=== PATIENT | male | born 1950 | race Caucasian/White ===

== ENCOUNTER → 2018-06-10 | Outpatient (CLI) | payer MEDICARE, OTHER | END | disposition home or self-care (01) | LOC: CFH 11:13 | PROVIDERS: ATTEND Nurse Practitioner | DX: J18.1 Lobar pneumonia, unspecified organism (principal); R91.8 Other nonspecific abnormal finding of lung field | CPT/HCPCS: 71046 ==

== ENCOUNTER 2018-09-08 13:50 | Outpatient (CLI) | payer MEDICARE, OTHER | END 2018-09-08 23:59 | disposition home or self-care (01) | LOC: PETCFH 13:50 | PROVIDERS: ATTEND Radiology Diagnostic Radiology | DX: C85.90 Non-Hodgkin lymphoma, unspecified, unspecified site (principal); C43.8 Malignant melanoma of overlapping sites of skin; I25.10 Atherosclerotic heart disease of native coronary artery without angina pectoris; K57.30 Diverticulosis of large intestine without perforation or abscess without bleeding | CPT/HCPCS: 78816; A9552 ==

== ENCOUNTER → 2018-09-13 | Outpatient (CLI) | payer MEDICARE, OTHER ==
[~2018-09-13] MED LIST: ALLO300T PO; ALPR0.25 PO; AMLO10TA8 PO; ASPI-496 PO; ATOR20TA PO; BENA40TA3 PO; CHOL100012 PO; GADOBUTROL 10 MMOL/10 ML PFS ONE; LEVO25TA4 PO; MAGN250T8 PO; METO25TA35 PO
== END | disposition home or self-care (01) ==
LOC: CFH 14:27
PROVIDERS: ATTEND Internal Medicine Hematology & Oncology
DX: C85.91 Non-Hodgkin lymphoma, unspecified, lymph nodes of head, face, and neck (principal); G31.89 Other specified degenerative diseases of nervous system
CPT/HCPCS: 70543; 70553; A9585

== ENCOUNTER 2018-09-15 06:12 | Day surgery (SDC) | payer MEDICARE, OTHER ==
[~2018-09-15] VITALS: Ht 175.3 cm; Wt 92.5 kg
[2018-09-15 07:18] VITALS: BP 157/80
[2018-09-15] MEDS ORDERED: CHOL100012 PO (07:27)
[2018-09-15] MEDS ORDERED: BENA40TA3 PO (07:27)
[2018-09-15] MEDS ORDERED: MAGN250T8 PO (07:27)
[2018-09-15] MEDS ORDERED: ASPI-496 PO (07:27)
[2018-09-15] MEDS ORDERED: METO25TA35 PO (07:27)
[2018-09-15] MEDS ORDERED: ALPR0.25 PO (07:27)
[2018-09-15] MEDS ORDERED: LEVO25TA4 PO (07:27)
[2018-09-15] MEDS ORDERED: ALLO300T PO (07:27)
[2018-09-15] MEDS ORDERED: ATOR20TA PO (07:27)
[2018-09-15] MEDS ORDERED: AMLO10TA8 PO (07:27)
[2018-09-15] MEDS ORDERED: SODIUM CHLORIDE 0.9% 1,000 ML IV SCH (07:41)
[2018-09-15] MEDS ORDERED: LIDOCAINE-MPF 1%, 5ML ONE (07:54)
[2018-09-15 07:55] LABS: BASOPHILS # (AUTO) 0.01 x10^3/uL (0-0.1); BASOPHILS % (AUTO) 0 % (0-1); EOSINOPHILS # (AUTO) 0.13 x10^3/uL (0-0.4); EOSINOPHILS % (AUTO) 2 % (1-7); LYMPHOCYTES # (AUTO) 1.64 x10^3/uL (1-3.4); LYMPHOCYTES % (AUTO) 25 % (22-44); MD NO; MEAN CORPUSCULAR HEMOGLOBIN 31.2 pg (27.5-34.5); MEAN CORPUSCULAR HGB CONC 33.5 g/dL (33.2-36.2); MEAN CORPUSCULAR VOLUME 93.3 fL (81-97); MEAN PLATELET VOLUME 8.2 fL (7.4-10.4); MONOCYTES % (AUTO) 12 % (2-9); NEUTROPHILS # (AUTO) 4.09 x10^3/uL (1.8-6.8); NEUTROPHILS % (AUTO) 61 % (42-75); PLATELET COUNT 287 x10^3/uL (130-400); RED BLOOD COUNT 4.64 x10^6/uL (4.38-5.82); RED CELL DISTRIBUTION WIDTH 13.9 % (9.4-14.8)
[2018-09-15] MEDS ORDERED: MIDAZOLAM 1 MG/ML, 5ML ONE (07:59)
[2018-09-15] MEDS ORDERED: NALOXONE 1 MG/ML, 2ML ONE (07:59)
[2018-09-15] MEDS ORDERED: FLUMAZENIL 0.1 MG/1 ML, 5ML ONE (07:59)
[2018-09-15] MEDS ORDERED: FENTANYL PF 100 MCG/2ML ONE (07:59)
== END 2018-09-15 10:25 | disposition home or self-care (01) ==
LOC: OUT 06:12 → EDSTATUS 08:00 → OUT 10:25
PROVIDERS: ATTEND Radiology Diagnostic Radiology
DX: C85.91 Non-Hodgkin lymphoma, unspecified, lymph nodes of head, face, and neck (principal); I10 Essential (primary) hypertension; F41.9 Anxiety disorder, unspecified; F32.9 Major depressive disorder, single episode, unspecified; K21.9 Gastro-esophageal reflux disease without esophagitis; M10.9 Gout, unspecified; E78.00 Pure hypercholesterolemia, unspecified; E03.9 Hypothyroidism, unspecified; Z87.01 Personal history of pneumonia (recurrent); Z88.5 Allergy status to narcotic agent; Z88.8 Allergy status to other drugs, medicaments and biological substances; Z87.442 Personal history of urinary calculi; Z98.41 Cataract extraction status, right eye; Z98.890 Other specified postprocedural states; Z85.46 Personal history of malignant neoplasm of prostate
CPT/HCPCS: 36415; 38222; 77012; 85025; 85060; 85097; 88237; 88264; 88280; 88305; 88311; 99156; J2250; J3010; J7030; 99157; J2310

== ENCOUNTER → 2018-09-17 | Outpatient (CLI) | payer MEDICARE, OTHER ==
[~2018-09-17] MED LIST changes: -GADOBUTROL 10 MMOL/10 ML PFS ONE
== END | disposition home or self-care (01) ==
LOC: CFH 12:29
PROVIDERS: ATTEND Internal Medicine
DX: Z13.6 Encounter for screening for cardiovascular disorders (principal); I08.0 Rheumatic disorders of both mitral and aortic valves; E78.5 Hyperlipidemia, unspecified; I10 Essential (primary) hypertension
CPT/HCPCS: 93306

== ENCOUNTER 2018-09-22 08:43 | Day surgery (SDC) | payer MEDICARE, OTHER ==
[~2018-09-22] VITALS: Ht 177.8 cm; Wt 93.3 kg
[2018-09-22] MEDS ORDERED: SODIUM CHLORIDE 0.9% 1,000 ML IV SCH (09:15)
[2018-09-22] MEDS ORDERED: CEFAZOLIN PMX 1GM/50ML 50 ML IV ONE (09:30)
[2018-09-22 09:45] VITALS: BP 154/71
[2018-09-22] MEDS ORDERED: LIDOCAINE 1%, 20ML ONE (09:58)
[2018-09-22] MEDS ORDERED: MIDAZOLAM 1 MG/ML, 5ML ONE (10:22)
[2018-09-22] MEDS ORDERED: FENTANYL PF 100 MCG/2ML ONE (10:22)
[2018-09-22] MEDS ORDERED: FLUMAZENIL 0.1 MG/1 ML, 5ML ONE (10:22)
[2018-09-22] MEDS ORDERED: NALOXONE 1 MG/ML, 2ML ONE (10:22)
== END 2018-09-22 12:00 | disposition home or self-care (01) ==
LOC: OUT 08:43
PROVIDERS: ATTEND Internal Medicine Hematology & Oncology
DX: Z45.2 Encounter for adjustment and management of vascular access device (principal); C85.90 Non-Hodgkin lymphoma, unspecified, unspecified site; I10 Essential (primary) hypertension; Z98.49 Cataract extraction status, unspecified eye; Z98.890 Other specified postprocedural states; Z87.891 Personal history of nicotine dependence
CPT/HCPCS: 36561; 76937; 77001; 99156; 99157; C1788; J0690; J1642; J2250; J3010; J7030; J2310

== ENCOUNTER → 2018-10-14 | Outpatient (CLI) | payer MEDICARE, OTHER | END | disposition home or self-care (01) | LOC: CFH 12:58 | PROVIDERS: ATTEND Internal Medicine Hematology & Oncology | DX: Z51.11 Encounter for antineoplastic chemotherapy (principal); C85.11 Unspecified B-cell lymphoma, lymph nodes of head, face, and neck; D70.1 Agranulocytosis secondary to cancer chemotherapy; R50.9 Fever, unspecified | CPT/HCPCS: 71046 ==

== ENCOUNTER 2018-11-05 17:18 | Inpatient (IN) | payer MEDICARE, OTHER ==
[~2018-11-05] VITALS: Ht 170.2 cm; Wt 77.0 kg
--- NOTE | 2018-11-05 17:35 | NUR ---
Pt to room with EDT and , pt states that last chemo was on October 28. Pt had lab work done on November 02 and he was told to go in, he came in and was given a liter of NS. Pt came to ED today for b/l flank pain and high temperatures today. Pt states that he called Dr. Fraser's office with a temperature at home of 100.4 and was told to come in to the ED.
--- NOTE | 2018-11-05 17:55 | NUR ---
Pt ambulated to bathroom, urine sample requested, and education provided for clean catch sample.
--- NOTE | 2018-11-05 18:02 | NUR ---
Dr. Murphy at bedside to evaluate pt. Urine sample obtained and sent to lab.
[2018-11-05 18:14] LABS: ALANINE AMINOTRANSFERASE 43 U/L (12-78); ALBUMIN 3.3 g/dL (3.4-5.0); ANION GAP 7 mmol/L (5-15); CALCIUM 8.8 mg/dL (8.5-10.1); CHLORIDE 101 mmol/L (98-107); CREATININE 1.05 mg/dL (0.7-1.3)
[2018-11-05 18:18] LABS: ALKALINE PHOSPHATASE 95 U/L (45-117); BILIRUBIN,TOTAL 0.9 mg/dL (0.2-1.0); TOTAL PROTEIN 6.3 g/dL (6.4-8.2); TROPONIN I < 0.015 ng/mL (0.000-0.045)
[2018-11-05 18:18] LABS: MICROSCOPIC NOT IND
[2018-11-05 18:21] LABS: CULTURE INDICATED? NO
[2018-11-05 18:26] LABS: MEAN CORPUSCULAR HEMOGLOBIN 31.8 pg (27.5-34.5); MEAN CORPUSCULAR HGB CONC 34.5 g/dL (33.2-36.2); MEAN CORPUSCULAR VOLUME 92.2 fL (81-97); MEAN PLATELET VOLUME 8.1 fL (7.4-10.4); PLATELET COUNT 192 x10^3/uL (130-400); RED BLOOD COUNT 3.92 x10^6/uL (4.38-5.82); RED CELL DISTRIBUTION WIDTH 13.3 % (9.4-14.8)
--- NOTE | 2018-11-05 18:58 | NUR ---
REPORT RECEIVED FROM THALIA SKINNER. ASSUMED CARE OF PT. PT CURRENTLY RESTING ON GURNEY. NAD NOTED. SKIN PWD. RESP EVEN AND EQUAL. PT DENIES PAIN/NEEDS AT THIS TIME. FAMILY AT BEDSIDE. PT AND FAMILY AWARE THAT WE ARE WAITING FOR LAB RESULTS. CALL LIGHT WITHIN REACH. WILL CONT TO MONITOR PT.
[2018-11-05 19:08] LABS: MD YES
[2018-11-05 19:10] LABS: <PLATELET ESTIMATE> ADEQUATE; <RBC MORPHOLOGY> NORMAL; BAND#(MANUAL) 0.38 x10^3/uL; BANDS%(MANUAL) 24 % (0-7); BASOS#(MANUAL) 0.02 x10^3/uL (0-0.1); BASOS% (MANUAL) 1 % (0-1); EOS#(MANUAL) 0.03 x10^3/uL (0.0-0.4); EOS% (MANUAL) 2 % (1-7); LYMPH#(MANUAL) 0.45 x10^3/uL (1-3.4); LYMPHS% (MANUAL) 28 % (22-44); METAMYELOCYTES# (MANUAL) 0.05 x10^3/uL (0-0); METAMYELOCYTES% (MANUAL) 3 % (0-1); MONOS#(MANUAL) 0.21 x10^3/uL (0.3-2.7); MONOS% (MANUAL) 13 % (2-9); MYELOCYTES# (MANUAL) 0.05 x10^3/uL (0-0); MYELOCYTES% (MANUAL) 3 % (0-0); OTHER CELLS # (MANUAL) 0.02 x10^3/uL (0-0); OTHER CELLS % (MANUAL) 1 % (0-0); REACTIVE LYMPHS % (MANUAL) 6 % (0-0); SEGS% (MANUAL) 19 % (42-75)
[2018-11-05 19:11] LABS: <PLT MORPHOLOGY> NORMAL PLT MORPH
--- NOTE | 2018-11-05 19:30 | NUR ---
PT CURRENTLY RESTING ON GURNEY. PT AO X 4. SKIN PWD. RESP EVEN AND UNLABORED. PT DENIES PAIN/NEEDS. AT BEDSIDE. CALL LIGHT WITHIN REACH. WILL CONT TO MONITOR PT.
[2018-11-05] MEDS ORDERED: CEFTRIAXONE PMX 1GM/50ML 50 ML IV ONE (20:00)
[2018-11-05] MEDS ORDERED: CEFEPIME 1 GM in DEXTROSE 5% 50 ML IV ONE (20:30)
--- NOTE | 2018-11-05 20:35 | NUR ---
REPORT TO THALIA MCGRATH ON ONCOLOGY. PER THALIA MCGRATH, THEY ARE WAITING FOR BED TO BE BROUGHT TO THE ROOM. PT CURRENTLY RESTING ON GURNEY. NAD NOTED. SKIN PWD. RESP EVEN AND UNLABORED. PT REFUSED TO HAVE PORT ACCESSED WITHOUT USING NUMBING CREAM PRIOR TO ACCESS. NUMBING CREAM PLACED AT THIS TIME. PT AO X 4. PT ON CONT BP, CARDIAC AND O2 MONITORS. 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 PER PT "THIS IS NORMAL". AT BEDSIDE. CALL LIGHT WITHIN REACH. WILL CONT TO MONITOR PT.
[2018-11-05] MEDS ORDERED: UBID100C10 PO (23:14)
[2018-11-05] MEDS ORDERED: L.AC1CAP6 PO (23:18)
[2018-11-05] MEDS ORDERED: HYAL1CAP PO (23:21)
[2018-11-06] MEDS ORDERED: POLYETHYLENE GLYCOL 17 GM PACKET PO PRN (00:30)
[2018-11-06] MEDS ORDERED: ACETAMINOPHEN 325 MG TABLET PO PRN (00:30)
[2018-11-06] MEDS ORDERED: hydrALAzine 20 MG/ML, 1ML IVPush PRN (00:30)
[2018-11-06] MEDS: CEFEPIME 2 GM in DEXTROSE 5% 100 ML IV SCH ×3 (01:17→16:26)
[2018-11-06] MEDS: SODIUM CHLORIDE 0.9% 1,000 ML IV SCH ×2 (01:17→16:30)
[2018-11-06 01:25] VITALS: BP 132/73
[2018-11-06 03:52] LABS: MEAN CORPUSCULAR HEMOGLOBIN 32.2 pg (27.5-34.5); MEAN CORPUSCULAR HGB CONC 34.6 g/dL (33.2-36.2); MEAN CORPUSCULAR VOLUME 93.3 fL (81-97); MEAN PLATELET VOLUME 8.1 fL (7.4-10.4); PLATELET COUNT 151 x10^3/uL (130-400); RED BLOOD COUNT 3.51 x10^6/uL (4.38-5.82); RED CELL DISTRIBUTION WIDTH 13.5 % (9.4-14.8)
[2018-11-06 04:30] LABS: HEMOGLOBIN A1C 9.1 % (4.2-6.3)
[2018-11-06 04:31] LABS: MD YES
[2018-11-06 04:56] LABS: BAND#(MANUAL) 0.46 x10^3/uL; BANDS%(MANUAL) 21 % (0-7); BASOS#(MANUAL) 0.02 x10^3/uL (0-0.1); BASOS% (MANUAL) 1 % (0-1); LYMPH#(MANUAL) 0.48 x10^3/uL (1-3.4); LYMPHS% (MANUAL) 22 % (22-44); METAMYELOCYTES# (MANUAL) 0.07 x10^3/uL (0-0); MONOS#(MANUAL) 0.29 x10^3/uL (0.3-2.7); MONOS% (MANUAL) 13 % (2-9); MYELOCYTES# (MANUAL) 0.09 x10^3/uL (0-0); MYELOCYTES% (MANUAL) 4 % (0-0); REACTIVE LYMPHS # (MANUAL) 0.13 x10^3/uL (0-0); REACTIVE LYMPHS % (MANUAL) 6 % (0-0); SEG#(MANUAL) 0.66 x10^3/uL (1.8-6.8); SEGS% (MANUAL) 30 % (42-75)
[2018-11-06 04:57] LABS: <PLATELET ESTIMATE> ADEQUATE; ANISOCYTOSIS 1+; OVALOCYTES 1+; POLYCHROMASIA 1+; TEAR DROPS 1+
[2018-11-06 04:58] LABS: <PLT MORPHOLOGY> NORMAL PLT MORPH
[2018-11-06 04:59] LABS: METAMYELOCYTES% (MANUAL) 3 % (0-1)
[2018-11-06 07:55] VITALS: BP 136/76
[2018-11-06] MEDS: INSULIN LISPRO 100 UNITS/ML, PEN SQ-INSULIN SCH ×4 (08:10→20:31)
[2018-11-06] MEDS ORDERED: [UNRECOGNIZED DRUG - OTHER] PO SCH (09:00)
[2018-11-06] MEDS: BENAZEPRIL 20 MG TABLET PO SCH (09:40)
[2018-11-06] MEDS: ALLOPURINOL 300 MG TABLET PO SCH (09:40)
[2018-11-06] MEDS: LACTOBACILLUS CHEW TABLET PO SCH (09:40)
[2018-11-06] MEDS: METOPROLOL TARTRATE 25 MG TABLET PO SCH (09:40)
[2018-11-06] MEDS: MAGNESIUM OXIDE 400 MG TABLET PO SCH (09:40)
[2018-11-06] MEDS: AMLODIPINE 5 MG TABLET PO SCH ×2 (09:41→20:26)
[2018-11-06] MEDS: LEVOTHYROXINE 25 MCG TABLET PO SCH (09:41)
[2018-11-06] MEDS: CHOLECALCIFEROL 1,000 UNIT TABLET PO SCH (09:41)
[2018-11-06 13:51] VITALS: BP 121/69
[2018-11-06] MEDS: metFORMIN 500 MG TABLET PO SCH (16:26)
[2018-11-06 20:17] VITALS: BP 157/73
[2018-11-06] MEDS ORDERED: ATORVASTATIN 20 MG TABLET PO SCH (21:00)
[2018-11-07] MEDS: CEFEPIME 2 GM in DEXTROSE 5% 100 ML IV SCH ×2 (00:45→09:20)
[2018-11-07 00:52] VITALS: BP 92/62
[2018-11-07] MEDS: SODIUM CHLORIDE 0.9% 1,000 ML IV SCH (04:41)
[2018-11-07 04:47] LABS: MEAN CORPUSCULAR HEMOGLOBIN 31.1 pg (27.5-34.5); MEAN CORPUSCULAR HGB CONC 33.6 g/dL (33.2-36.2); MEAN CORPUSCULAR VOLUME 92.5 fL (81-97); MEAN PLATELET VOLUME 7.8 fL (7.4-10.4); PLATELET COUNT 160 x10^3/uL (130-400); RED BLOOD COUNT 3.58 x10^6/uL (4.38-5.82); RED CELL DISTRIBUTION WIDTH 13.4 % (9.4-14.8)
[2018-11-07 04:48] LABS: HCT (SEDRATE) 33.1 % (39.2-51.8)
[2018-11-07 04:57] LABS: ALANINE AMINOTRANSFERASE 30 U/L (12-78); ALBUMIN 2.8 g/dL (3.4-5.0); ANION GAP 3 mmol/L (5-15); CALCIUM 8.4 mg/dL (8.5-10.1); CHLORIDE 106 mmol/L (98-107); MD YES
[2018-11-07 04:59] LABS: ALKALINE PHOSPHATASE 83 U/L (45-117); BILIRUBIN,TOTAL 0.6 mg/dL (0.2-1.0)
[2018-11-07 05:01] LABS: ANISOCYTOSIS 1+; BAND#(MANUAL) 0.91 x10^3/uL; BANDS%(MANUAL) 16 % (0-7); LYMPH#(MANUAL) 0.63 x10^3/uL (1-3.4); LYMPHS% (MANUAL) 11 % (22-44); METAMYELOCYTES# (MANUAL) 0.06 x10^3/uL (0-0); METAMYELOCYTES% (MANUAL) 1 % (0-1); MONOS#(MANUAL) 0.74 x10^3/uL (0.3-2.7); MONOS% (MANUAL) 13 % (2-9); MYELOCYTES# (MANUAL) 0.17 x10^3/uL (0-0); MYELOCYTES% (MANUAL) 3 % (0-0); NRBC % (MANUAL) 1 % (0-1); SEG#(MANUAL) 3.19 x10^3/uL (1.8-6.8); SEGS% (MANUAL) 56 % (42-75)
[2018-11-07 05:02] LABS: <PLATELET ESTIMATE> ADEQUATE; <PLT MORPHOLOGY> NORMAL PLT MORPH; OVALOCYTES 1+; POLYCHROMASIA 1+
[2018-11-07] MEDS: INSULIN LISPRO 100 UNITS/ML, PEN SQ-INSULIN SCH ×2 (07:00→11:00)
[2018-11-07 07:25] VITALS: BP 163/73
[2018-11-07] MEDS: CHOLECALCIFEROL 1,000 UNIT TABLET PO SCH (09:05)
[2018-11-07] MEDS: MAGNESIUM OXIDE 400 MG TABLET PO SCH (09:05)
[2018-11-07] MEDS: LACTOBACILLUS CHEW TABLET PO SCH (09:05)
[2018-11-07] MEDS: AMLODIPINE 5 MG TABLET PO SCH (09:06)
[2018-11-07] MEDS: LEVOTHYROXINE 25 MCG TABLET PO SCH (09:06)
[2018-11-07] MEDS: METOPROLOL TARTRATE 25 MG TABLET PO SCH (09:07)
[2018-11-07] MEDS: ALLOPURINOL 300 MG TABLET PO SCH (09:07)
[2018-11-07] MEDS: BENAZEPRIL 20 MG TABLET PO SCH (09:07)
[2018-11-07] MEDS: metFORMIN 500 MG TABLET PO SCH (09:18)
[2018-11-07 13:49] VITALS: BP 142/69
== END 2018-11-07 14:10 | disposition home or self-care (01) | DRG 809 ==
LOC: ED 18:26 → EDIP 20:31 → 3NW 21:30
PROVIDERS: ADMIT Family Medicine; ATTEND Family Medicine
DX: D70.1 Agranulocytosis secondary to cancer chemotherapy (principal); C83.30 Diffuse large B-cell lymphoma, unspecified site; R50.81 Fever presenting with conditions classified elsewhere; M10.9 Gout, unspecified; E03.9 Hypothyroidism, unspecified; E78.5 Hyperlipidemia, unspecified; E86.0 Dehydration; E11.65 Type 2 diabetes mellitus with hyperglycemia; G47.30 Sleep apnea, unspecified; I10 Essential (primary) hypertension; K59.00 Constipation, unspecified; T45.1X5A Adverse effect of antineoplastic and immunosuppressive drugs, initial encounter; Y92.89 Other specified places as the place of occurrence of the external cause; Z85.46 Personal history of malignant neoplasm of prostate; Z90.79 Acquired absence of other genital organ(s)
CPT/HCPCS: 36415; 71045; 80053; 81003; 82962; 83036; 84145; 84484; 85025; 85651; 86140; 87040; 93005; 96374; G0378; J0692; J1815; J7030

== ENCOUNTER → 2018-11-12 | Outpatient (CLI) | payer MEDICARE, OTHER ==
[~2018-11-12] MED LIST changes: +HYAL1CAP PO; +L.AC1CAP6 PO; +UBID100C10 PO
== END | disposition home or self-care (01) ==
LOC: PETCFH 07:36
PROVIDERS: ATTEND Internal Medicine Hematology & Oncology
DX: C85.11 Unspecified B-cell lymphoma, lymph nodes of head, face, and neck (principal); J32.0 Chronic maxillary sinusitis; K57.30 Diverticulosis of large intestine without perforation or abscess without bleeding
CPT/HCPCS: 78815; A9552

== ENCOUNTER 2018-12-16 16:25 | Emergency (ER) | payer MEDICARE, OTHER ==
[~2018-12-16] VITALS: Ht 175.3 cm; Wt 87.0 kg
[2018-12-16] MEDS ORDERED: ACETAMINOPHEN 500 MG TABLET ONE (16:53)
[2018-12-16] MEDS ORDERED: SODIUM CHLORIDE 0.9% 1,000ML IVBOLUS ONE (17:00)
[2018-12-16] MEDS ORDERED: ACETAMINOPHEN 500 MG TABLET PO ONE (17:00)
[2018-12-16 17:09] LABS: MEAN CORPUSCULAR HEMOGLOBIN 32.1 pg (27.5-34.5); MEAN CORPUSCULAR HGB CONC 33.6 g/dL (33.2-36.2); MEAN CORPUSCULAR VOLUME 95.6 fL (81-97); MEAN PLATELET VOLUME 7.1 fL (7.4-10.4); PLATELET COUNT 233 x10^3/uL (130-400); RED BLOOD COUNT 3.62 x10^6/uL (4.38-5.82); RED CELL DISTRIBUTION WIDTH 16.9 % (9.4-14.8)
--- NOTE | 2018-12-16 17:18 | NUR ---
PT TO ROOM 16 W/ C/O FEVER OVER THE LAST FEW HRS AND HAS HX LYMPHOMA. PT STATES HE WAS DX W/ LYMPHOMA AND IS FOLLOWED BY DR. JOINER. PT HAD WBC INCREASE ON THURSDAY TO 8. PT RESTING ON GURNEY. NADN. MONITORS APPLIED. PORT ACCESSED.
[2018-12-16 17:23] LABS: ALBUMIN 3.5 g/dL (3.4-5.0); ANION GAP 8 mmol/L (5-15); BILIRUBIN, DIRECT 0.3 mg/dL (0.1-0.2); CALCIUM 8.7 mg/dL (8.5-10.1); CHLORIDE 102 mmol/L (98-107)
[2018-12-16 17:26] LABS: ALANINE AMINOTRANSFERASE 24 U/L (12-78); ALKALINE PHOSPHATASE 110 U/L (45-117); BILIRUBIN,INDIRECT 0.9 mg/dL (0.0-2.0); BILIRUBIN,TOTAL 1.2 mg/dL (0.2-1.0); CREATININE 1.02 mg/dL (0.7-1.3); TOTAL PROTEIN 6.6 g/dL (6.4-8.2)
--- NOTE | 2018-12-16 17:35 | NUR ---
PT RESTING ON GURNEY. NADN. OSCAR.
[2018-12-16 17:40] LABS: MD YES
[2018-12-16 17:43] LABS: ANISOCYTOSIS 1+; BAND#(MANUAL) 0.71 x10^3/uL; BANDS%(MANUAL) 8 % (0-7); EOS#(MANUAL) 0.09 x10^3/uL (0.0-0.4); EOS% (MANUAL) 1 % (1-7); LYMPH#(MANUAL) 0.45 x10^3/uL (1-3.4); LYMPHS% (MANUAL) 5 % (22-44); MONOS#(MANUAL) 0.36 x10^3/uL (0.3-2.7); MONOS% (MANUAL) 4 % (2-9); SEGS% (MANUAL) 82 % (42-75)
[2018-12-16 17:44] LABS: OVALOCYTES 1+
[2018-12-16 17:45] LABS: <PLATELET ESTIMATE> ADEQUATE; POLYCHROMASIA 1+; TOXIC GRAN 1+
[2018-12-16 17:46] LABS: <PLT MORPHOLOGY> NORMAL PLT MORPH
[2018-12-16 17:55] LABS: MICROSCOPIC NOT IND
[2018-12-16 18:03] LABS: CULTURE INDICATED? NO
--- NOTE | 2018-12-16 18:10 | NUR ---
PT CHART REVIEWED AND PLACED FOR RECHECK.
--- NOTE | 2018-12-16 18:15 | NUR ---
PT RESTING ON GURNEY. NADN. OSCAR.
--- NOTE | 2018-12-16 18:30 | NUR ---
SPOKE W/ ERP DR. GONZALEZ REGARDING PT WBC AT 8.9 WHEN PT BASELINE IS EXTREMELY LOWER, PT LA AND PROCALCITONIN. PER ERP WILL WAIT ON DR. ESQUIVEL'S RECOMMENDATIONS ON ABX.
[2018-12-16] MEDS ORDERED: PIPERACILLIN/TAZO/PMX 3.375GM 50 ML ONE (18:38)
--- NOTE | 2018-12-16 18:50 | NUR ---
REPORT GIVEN TO ALYSHA PADILLA RN'S.
[2018-12-16] MEDS ORDERED: PIPERACILLIN/TAZO/PMX 3.375GM 50 ML IV ONE (19:00)
--- NOTE | 2018-12-16 19:03 | NUR ---
THE PT PORT A CATH WAS FLUSHED W/ 20 CC OF SALINE AND THEN LOCKED W/ 500 UNITS OF HEPARIN. FLUSHED W/O DIFF AND GOOD BLD RETURN CHECKED BEFORE FLUSHING THE PORT.
[2018-12-16 19:07] VITALS: BP 136/58
--- NOTE | 2018-12-16 19:07 | NUR ---
DENIES PAIN 0/10
== END 2018-12-16 19:28 | disposition home or self-care (01) ==
LOC: ED 16:57
DX: R50.9 Fever, unspecified (principal)
CPT/HCPCS: 36415; 71046; 80048; 80076; 81003; 82040; 83605; 84145; 85025; 87040; 96365; 99284; J2543; J7030